=== PATIENT | female | born 1940 | race Caucasian/White ===

== ENCOUNTER → 2019-08-11 | Outpatient (CLI) | payer OTHER | LOC: SJCVC 15:14 | DX: I48.91 Unspecified atrial fibrillation (principal); K21.9 Gastro-esophageal reflux disease without esophagitis; Z79.899 Other long term (current) drug therapy; Z98.890 Other specified postprocedural states ==

== ENCOUNTER → 2019-09-15 | Outpatient (CLI) | payer OTHER ==
[~2019-09-15] MED LIST: COQ-10100 MG PO; MAGNESIUM250 M1 PO; PRILOSEC OTC20 MG PO; PROLIA60 MG/1 ML INJECTION; ZYRTEC10 M4 PO
== END ==
LOC: SJCVCIMAG 08:34
DX: I08.1 Rheumatic disorders of both mitral and tricuspid valves (principal); I48.0 Paroxysmal atrial fibrillation; R53.1 Weakness; Z88.5 Allergy status to narcotic agent; Z88.8 Allergy status to other drugs, medicaments and biological substances; Z79.899 Other long term (current) drug therapy

== ENCOUNTER → 2019-09-21 | Outpatient (CLI) | payer OTHER ==
[~2019-09-21] VITALS: Ht 170.2 cm; Wt 81.6 kg
[2019-09-21 09:35] LABS: HEMATOCRIT 40.8 % (37.0-47.0); HEMOGLOBIN 13.3 gm/dL (12.0-15.0); MCHC 32.7 g/dL (28.0-37.0); MCV 85.8 fL (80.0-100.0); RBC 4.75 mil/uL (4.20-5.00); RDW 12.5 % (10.5-14.5); WBC 5.7 thou/uL (4.0-11.0)
[2019-09-21 09:36] VITALS: BP 130/61
[2019-09-21 09:44] LABS: CALCIUM 9.8 mg/dL (8.5-10.1); POTASSIUM 4.5 mmol/L (3.5-5.1)
--- NOTE | 2019-09-22 08:16 | EKG ---
[facility] [place] [address] ELECTROCARDIOGRAM REPORT Name: ANASTASIA MARTINEZ Room #: REG [facility].#: [id number] Admission: 09/21/19 Attend Phys: Reynold Allen Discharge: Date of : 40 Report #: [id number] THIS REPORT FOR: cc: Kvng Poole Gregory DO Lundgren,John Perez MD [facility] ~ THIS REPORT FOR: //name// [facility] Test Date: 2019-09-21 Test Time: 10:03:02 Pat Name: ANASTASIA MARTINEZ Department: Room: Gender: F Dexigraph Operator: Allen GANDHI : 1940 Requested By: Reynold Allen Order Number: [id number] MD: John Waters Measurements Intervals [place] Rate: 70 P: 3 ND: 156 QRS: 16 QRSD: 96 T: 23 QT: 397 QTc: 429 Interpretive Statements Sinus rhythm Atrial premature complexes Early R-wave progression No previous ECG available for comparison Electronically Signed On 09-22-2019 8:15:15 BOAT MASTER by John Waters [email or web address] <ELECTRONICALLY SIGNED> By: John Waters MD, [facility] 09/22/19 0815 1003 100 John Waters MD, [facility] /EPI
--- NOTE | 2019-10-07 13:20 | CATHLAB ---
[facility] [place] [address] INVASIVE PROCEDURE REPORT Name: ANASTASIA MARTINEZ Room #: REG KYAW Bryon#: [id number] Admission: 09/21/19 Attend Phys: Reynold Allen Discharge: Date of : 40 Report #: [id number] THIS REPORT FOR: cc: Kvng Poole Gregory DO Lammoglia, Francisco J. MD ~ APPROVED REPORT Study performed: 09/21/2019 10:23:47 Patient Details Patient Status: Out-Patient Room #: The patient is a 79 year-old female Event Personnel Reynold Allen Message And Delivery Service Pricer, Shakira Lozada RN RN, Hugh Stern RTR Monitor, Nikki Fournier Monitor, Stephanie Manjarrez RTR Scrub Procedures Performed Art Access - R femoral artery* Left Heart Cath w/or w/o Coronaries [id number] [facility] [address]392 Initial Mod Sed Same Phys/QHP Gr [id number] 80441 Mod Sed Same Phys/QHP Ea [id number] Hemostasis with Manual pressure, supervision of conscious sedation Indication Positive stress test, Chest pain Procedure Narrative The patient was brought electively to the Cardiac Catheterization Laboratory and was prepped and draped in a sterile manner. The Right Groin^ was infiltrated with 1% Lidocaine subcutaneous anesthesia. A PINNACLE 4FR Sheath #[id number] sheath was inserted into the RFA^. Coronary angiography was performed using coronary diagnostic catheters. The right coronary system was accessed and visualized with a JR4 catheter. The left coronary system was accessed and visualized with a JL4 catheter. The left ventricle was accessed and visualized with a PIGTAIL catheter. Hemostasis was obtained with manual pressure following sheath removal without any complications. The patient tolerated the procedure well and there were no complications associated with the procedure. There was no hematoma. Intraoperative Conscious Sedation Sedation start time: 10:36 Case end Time: [facility] [address] [place] [address] INVASIVE PROCEDURE REPORT Name: ANASTASIA MARTINEZ Room #: REG GERRY Slater#: [id number] Admission: 09/21/19 Attend Phys: Reynold Aguirre Discharge: Date of : 40 Report #: [id number] 11:12 Versed 1.5 mg Fluoro Time: 1.57 minutes Dose: DAP 2276.60 cGycm2 322 mGy Contrast Type and Amount: Omnipaque 45 ml Coronary Angiography The patient's coronary anatomy is right dominant. Diagnostic Cath Left Main Normal origin moderate caliber long in length free of high-grade disease bifurcates left anterior descending left circumflex LAD Caliber type II vessel which courses along the anterior interventricular sulcus giving rise to septal and diagonal branches free of high-grade lesions Diagonal 1 Small-caliber vessel without high-grade lesions noted Circumflex Moderate caliber vessel which trifurcates early giving rise to several marginal branches and is free of high-grade lesions OM1 Small-caliber vessel less than structural lesions noted OM2 Mild to moderate caliber vessel without high-grade lesions OM3 Caliber vessel leading towards the lateral last the left ventricle free of high-grade disease with tortuous in its course Right Coronary Caliber vessel of normal origin without significant high-grade lesions notices it courses posterior to the crux of the heart rate is rise to a moderate caliber posterior descending artery all of which are free of high-grade disease R PDA Caliber vessel without significant stenosis Hemodynamics The aortic pressure is 121/61 mmHg with a mean of 86 mmHg. The left ventricular pressure is 148/5 mmHg with a mean of mmHg. The left ventricular end diastolic pressure is 25 mmHg. Conclusion 1. Essentially normal coronary arteries 2. Normal hemodynamics Recommendations [facility] [address] [place] [address] INVASIVE PROCEDURE REPORT Name: ANASTASIA MARTINEZ Room #: REG Bryon#: [id number] Admission: 09/21/19 Attend Phys: Reynold Aguirre Discharge: Date of : 40 Report #: [id number] Cardiac Risk Reduction Program Medical Therapy <ELECTRONICALLY SIGNED> By: Reynold Allen MD 10/07/19 1319 1319 1319 Reynold Allen MD /INF
--- NOTE | 2019-10-12 10:28 | H ---
[facility] [place] [address] HISTORY AND PHYSICAL Name: ANASTASIA MARTINEZ Room #: REG KYAW GoodmanJoanTanesha.#: [id number] Admission: 09/21/19 Attend Phys: Reynold Allen Discharge: Date of : 40 Report #: [id number] THIS REPORT FOR: cc: Kvng Poole,Kvng Connell,Reynold Wilson MD ~ CC: Reynold Poole DATE OF SERVICE: 09/21/2019 HISTORY OF PRESENT ILLNESS: A 79-year-old female patient with paroxysmal atrial fibrillation, atypical chest pain, had an abnormal noninvasive evaluation for ischemia. She now presents for cardiac catheterization. PHYSICAL EXAMINATION: HEENT: Normocephalic, atraumatic. Pupils are equal, round, reactive to light and accommodation. Extraocular muscles are intact. Sclerae and conjunctivae are anicteric. NECK: JVD is normal. Carotid upstrokes are bilaterally symmetrical. No bruits are heard. No thyromegaly. No lymphadenopathy. LUNGS: Clear to auscultation. No wheezes, rhonchi or crackles. No CVA tenderness. CARDIAC: Demonstrates a regular rhythm. Normal first and second heart sounds. No ventricular or atrial gallops, no rubs noted. No murmurs. No lifts or heaves, PMI normal. ABDOMEN: Soft, nontender, nondistended. Normal bowel sounds. EXTREMITIES: Without cyanosis, clubbing or edema. Distal pulses are intact. DTR symmetrical. NEUROLOGIC: Cranial nerves 2-12 are grossly normal and symmetrical. PSYCHIATRIC: Alert, oriented with normal affect. SKIN: Warm and dry. IMPRESSION: Chest discomfort with abnormal perfusion scan. We will proceed with cardiac catheterization. The risks, complications and alternatives have been discussed with the patient. She voices understanding and wished to proceed. <ELECTRONICALLY SIGNED> By: Reynold Allen MD 10/12/19 1028 0940 0947 Reynold Allen MD /nt
== END | disposition home or self-care (01) ==
LOC: CATH 08:45
PROVIDERS: Internal Medicine
DX: R07.9 Chest pain, unspecified (principal); I48.91 Unspecified atrial fibrillation; K21.9 Gastro-esophageal reflux disease without esophagitis; Z98.890 Other specified postprocedural states; Z79.899 Other long term (current) drug therapy; Z79.01 Long term (current) use of anticoagulants

== ENCOUNTER → 2019-10-12 | Outpatient (CLI) | payer OTHER | LOC: SJCVC 11:08 | DX: I48.0 Paroxysmal atrial fibrillation (principal); R06.09 Other forms of dyspnea; R00.1 Bradycardia, unspecified; Z79.899 Other long term (current) drug therapy ==

== ENCOUNTER 2019-10-25 09:17 | Inpatient (IN) | payer OTHER ==
[~2019-10-25] VITALS: Ht 170.2 cm; Wt 78.0 kg
[2019-10-25] VITALS (13 sets, daily range): BP systolic 126–150; BP diastolic 60–73
[2019-10-25 09:51] LABS: ABSOLUTE NEUTROPHILS 2.6 thou/uL (1.4-8.2); BASOPHILS 0.5 % (0.0-2.0); EOSINOPHILS 4.7 % (0.0-3.0); HEMATOCRIT 38.4 % (37.0-47.0); HEMOGLOBIN 12.6 gm/dL (12.0-15.0); MCH 28.3 pg (26.0-34.0); MCHC 32.7 g/dL (28.0-37.0); MCV 86.5 fL (80.0-100.0); MONOCYTES 11.3 % (1.0-8.0); PLATELET COUNT 230 thou/uL (150-400); POLYS 43.5 % (36.0-66.0); RBC 4.45 mil/uL (4.20-5.00); RDW 12.9 % (10.5-14.5); WBC 5.9 thou/uL (4.0-11.0)
[2019-10-25 10:09] LABS: CALCIUM 9.4 mg/dL (8.5-10.1); CREATININE 0.9 mg/dL (0.6-1.0); POTASSIUM 4.1 mmol/L (3.5-5.1)
[2019-10-25] MEDS ORDERED: FEOSOL45 M1 PO (10:26)
[2019-10-25] MEDS ORDERED: TURMERIC500 M2 PO (10:27)
[2019-10-25] MEDS ORDERED: GLUCOSAMINE S1000 M3 PO (10:29)
[2019-10-25] MEDS ORDERED: ONE-A-DAY PRO200 MCG PO (10:30)
[2019-10-25] MEDS ORDERED: CAL MAG ZINC +1 EACH PO (10:31)
[2019-10-25] MEDS ORDERED: VIT C-ROSE HIP500 MG PO (10:31)
[2019-10-25] MEDS ORDERED: POTASSIUM GLUCO99 M2 PO (10:33)
[2019-10-25] MEDS ORDERED: FISH OIL 1,001000 M3 PO (10:33)
[2019-10-25] MEDS ORDERED: PEDIA-LAX400 MG PO (10:34)
[2019-10-25] MEDS ORDERED: B COMPLEX WITH1 EAC1 PO (10:36)
[2019-10-25] MEDS ORDERED: OSTERA TABLET1 EAC1 PO ×2 (10:36→10:38)
--- NOTE | 2019-10-25 18:08 | NUR ---
PATIENT ARRIVED TO THE FLOOR AT 1345 FROM FRETTED INSTRUMENT INSPECTOR VIA BED. S/P PACEMAKER PLACEMENT LT UPPER CHEST. POST PROCEDURE VSS, AND LT UPPER CHEST INCISION, INATCT AND WELL APPROXIMATED. LT ARM IMMOBOLIZER INPLACE AND WILL CONTINUE TO MONITOR.
[2019-10-26 03:12] VITALS: BP 166/67
--- NOTE | 2019-10-26 04:18 | NUR ---
Pt. stated she slept fair during the night in between using bedpan. Kept on bedrest per order S/P pacemaker placement. Left arm immobilizer in place.Left chest pacemaker site with dressing CDI. SR per tele. Denies any pain or shortness of breath. SCD's in place. Bed alarm on for safety. Making progress towards care plan goals.9
[2019-10-26 08:16] VITALS: BP 42/63
[2019-10-26 11:14] VITALS: BP 143/55
[2019-10-26 12:54] VITALS: BP 143/55
[2019-10-26 14:23] VITALS: BP 143/55
--- NOTE | 2019-10-26 14:28 | NUR ---
Attempted to contact patient in room. Sp with RN. patient to dc home today. She is out of room having an xray. RN reports she is up ad crissy appears steady and reports no dc needs.
[2019-10-26 14:47] VITALS: BP 143/55
--- NOTE | 2019-10-26 15:54 | NUR ---
PT HAD PACEMAKER PLACED YESTERDAY...DISCHARGED HOME WITH SPOUSE TODAY...CHEST XRAY NEG...FOLLOW UP IN 1 WEEK AND 1 MONTH PER CARDIO...
--- NOTE | 2019-11-01 15:46 | CATHLAB ---
[facility] [address] [place] [address] INVASIVE PROCEDURE REPORT Name: ANASTASIA MARTINEZ Room #: 208-P [facility] IN M.R.#: [id number] Admission: 10/25/19 Attend Phys: Reynold Allen Discharge: 10/26/19 Date of : 40 Report #: [id number] THIS REPORT FOR: cc: Kvng Poole Gregory DO Lammoglia,Reynold Wilson MD ~ APPROVED REPORT Study performed: 10/25/2019 12:10:21 Patient Status: Out-Patient Room #: Event Personnel: Reynold Allen Financial Management Consultant, Maxim Greene RN, Racquel Mijares, Hugh Stern RTR Scrub, Robinson Richey, RDCS Scrub Exam: Generator Change for a Dual Chamber Permanent Pacemaker Indications: symptomatic bradycardia with AV block and syncope The patient is a 79 year-old female with a history of sick sinus syndrome with symptomatic bradycardia and episodes of tachycardia. Conscious Sedation Start time: 11:52 End Time: 13:12 Versed 2 mg 25 mg IV Demerol and divided aliquots Implanted Devices: Atrial Lead REF: [id number] SN: [id number] Ventricle Lead REF: [id number] SN: [id number] Generator REF: [id number] SN: [id number] Procedure The patient underwent informed consent. We discussed the details of the procedure including the risks, which include, but not limited to bleeding, infection, vascular damage, cardiac perforation, and pneumothorax. She understood these risks and was willing to proceed. As such, she was brought to the EP/Cardiac Catheterization laboratory in a fasting and sedated state and prepped and draped in a sterile fashion, received IV antibiotics prior to initiation of the procedure and a venogram was performed showing patency of the left axillary vein. The patient underwent conscious sedation, with no related complications. [address] [address] INVASIVE PROCEDURE REPORT Name: ANASTASIA MARTINEZ Room #: 208-P [facility] IN M.R.#: [id number] Admission: 10/25/19 Attend Phys: Reynodl Aguirre Discharge: 10/26/19 Date of : 40 Report #: [id number] The patient was brought to the EP/Cardiac Catheterization laboratory and the left chest and shoulder were prepped and draped in a sterile manner. During this case, Fluoroscopy and low osmolar contrast were used for imaging. The left subclavian region was infiltrated with 2% Lidocaine subcutaneous anesthesia. A transverse incision was made in the left upper chest cavity. The subcutaneous pocket was formed via blunt dissection. Percutaneous venous access was achieved and an introducer sheath was inserted into the left Subclavian vein. Sheaths were positions using the modified Seldinger technique Through the introducer sheaths the atrial and ventricular lead wires were positioned in the right atrial appendage and right ventricular apex respectively. Utilizing fluoroscopic guidance, the atrial and ventricular lead wires were advanced over the wires and positioned in the right atria and right ventricle respectively. Capturing and sensing thresholds were verified. Electrode Parameters A Lead Capture: 0.75 @ 0.4ms (Bi) Sense: >5.0mV (Bi) Lead Impedence: 480 ohms (Bi) V Lead Capture: 0.75V @ 0.4ms (Bi) Sense 9.3mV (Bi) Lead Impedence 750 ohms (Bi) Dual Chamber The atrial and ventricular leads were then secured using 2.0 ethibond sutures. The subcutaneous pocket was irrigated with vancomycin antibiotic solution.The atrial and ventricular leads were attached to the appropriate receptacles on the pulse generator and set screws firmly tightened to insure adequate contact and stability. The lead and pulse generator were placed into the subcutaneous pocket. Sharp and sponge counts were confirmed to be correct. At this time the pocket was closed subcutaneously with a 2O nonabsorbable suture in a running locking stitch and the skin was closed with a feel Vicryl in a subcuticular stitch. The operative site was dressed in sterile fashion with Steri-Strips 4 x 4 and OpSite and the patient was transferred to the floor in stable condition. Complications The patient tolerated the procedure well and there were no complications associated with the procedure. Findings [address] [address] INVASIVE PROCEDURE REPORT Name: ANASTASIA MARTINEZ Room #: 208-P [facility] IN M.R.#: [id number] Admission: 10/25/19 Attend Phys: Reynold Aguirre Discharge: 10/26/19 Date of : 40 Report #: [id number] Specimens Removed: N/A Estimated Blood Loss: 5 mL Conclusion 1. Successful implantation of a dual-chamber pacemaker with active fixation leads Recommendations 1. Routine post pacemaker implantation protocol <ELECTRONICALLY SIGNED> By: Reynold Allen MD 11/01/19 1544 1544 1544 Reynold Allen MD /INF
--- NOTE | 2019-11-05 01:12 | D ---
[facility] [place] [address] DISCHARGE SUMMARY Name: ANASTASIA MARTINEZ Room #: 208-P [facility] IN M.R.#: [id number] Admission: 10/25/19 Attend Phys: Reynold Allen Discharge: 10/26/19 Date of : 40 Report #: [id number] THIS REPORT FOR: cc: Kvng Poole,Kvng Connell,Reynold Wilson MD ~ THIS REPORT FOR: //name// CC: Reynold Poole DATE OF SERVICE: 10/26/2019 ADMITTING DIAGNOSES: Syncope, near syncope with symptomatic AV block and sick sinus syndrome. DISCHARGE DIAGNOSES: Syncope, near syncope with symptomatic AV block and sick sinus syndrome. PROCEDURES PERFORMED: 1. Insertion of a dual chamber pacemaker. 2. Supervision of conscious sedation. FOLLOWUP: 1. Dr. Allen for wound check with nurse in [address] Allen's office visit in 4 weeks. BRIEF CLINICAL HISTORY: See history and physical chart. HOSPITAL COURSE: The patient was admitted to the hospital and underwent uncomplicated dual chamber pacemaker insertion. She remained hemodynamically and electrically stable throughout her course. No symptoms except for some incisional discomfort were described by the patient. Chest x-ray was obtained and upon results if no pneumothorax is noted, she will be discharged in stable and improved condition to follow up with the previously stated discharge instructions and medications. DISCHARGE MEDICATIONS: Home meds. <ELECTRONICALLY SIGNED> By: Reynold Allen MD 11/05/19 0112 1250 1256 Reynold Allen MD /nt
== END 2019-10-26 15:27 | disposition home or self-care (01) | DRG 244 ==
LOC: CATH 09:17 → 2N 14:28 → ENTRNSPT 10-26 15:07 → 2N 10-26 15:27
PROVIDERS: ADMIT Internal Medicine
PROC: 02HK3JZ Insertion of Pacemaker Lead into Right Ventricle, Percutaneous Approach (ICD-10-PCS; principal; 2019-10-26)
PROC: B51V1ZZ Fluoroscopy of Other Veins using Low Osmolar Contrast (ICD-10-PCS; principal; 2019-10-26)
PROC: 0JH606Z Insertion of Pacemaker, Dual Chamber into Chest Subcutaneous Tissue and Fascia, Open Approach (ICD-10-PCS; principal; 2019-10-26)
PROC: 02H63JZ Insertion of Pacemaker Lead into Right Atrium, Percutaneous Approach (ICD-10-PCS; principal; 2019-10-26)
DX: I49.5 Sick sinus syndrome (principal); I44.30 Unspecified atrioventricular block; I48.0 Paroxysmal atrial fibrillation; Z79.899 Other long term (current) drug therapy
CPT/HCPCS: 10081

== ENCOUNTER → 2019-12-06 | Outpatient (CLI) | payer OTHER ==
[~2019-12-06] MED LIST changes: +B COMPLEX WITH1 EAC1 PO; +CAL MAG ZINC +1 EACH PO; +FEOSOL45 M1 PO; +FISH OIL 1,001000 M3 PO; +GLUCOSAMINE S1000 M3 PO; +ONE-A-DAY PRO200 MCG PO; +OSTERA TABLET1 EAC1 PO; +PEDIA-LAX400 MG PO; +POTASSIUM GLUCO99 M2 PO; +TURMERIC500 M2 PO; +VIT C-ROSE HIP500 MG PO
== END ==
LOC: SJCVC 12:59
PROVIDERS: ATTEND Internal Medicine
DX: Z45.018 Encounter for adjustment and management of other part of cardiac pacemaker (principal); R53.1 Weakness; I48.0 Paroxysmal atrial fibrillation; Z79.899 Other long term (current) drug therapy

== ENCOUNTER → 2020-12-11 | Outpatient (CLI) | payer OTHER | LOC: SJCVC 13:27 | PROVIDERS: ATTEND Internal Medicine | DX: I49.9 Cardiac arrhythmia, unspecified (principal); I82.403 Acute embolism and thrombosis of unspecified deep veins of lower extremity, bilateral; I49.5 Sick sinus syndrome; I10 Essential (primary) hypertension; E78.5 Hyperlipidemia, unspecified; Z95.0 Presence of cardiac pacemaker; Z88.1 Allergy status to other antibiotic agents; Z88.5 Allergy status to narcotic agent; Z79.899 Other long term (current) drug therapy ==

== ENCOUNTER → 2021-06-17 | Outpatient (CLI) | payer OTHER | LOC: SJCVC 12:45 | PROVIDERS: ATTEND Internal Medicine | DX: I82.503 Chronic embolism and thrombosis of unspecified deep veins of lower extremity, bilateral (principal); I49.5 Sick sinus syndrome; E78.5 Hyperlipidemia, unspecified; Z88.1 Allergy status to other antibiotic agents; Z88.5 Allergy status to narcotic agent; Z88.8 Allergy status to other drugs, medicaments and biological substances; Z79.899 Other long term (current) drug therapy; Z95.818 Presence of other cardiac implants and grafts; Z95.0 Presence of cardiac pacemaker ==

== ENCOUNTER → 2021-06-28 | Outpatient (CLI) | payer OTHER | LOC: SJCVCIMAG 07:11 | PROVIDERS: ATTEND Internal Medicine | DX: M79.89 Other specified soft tissue disorders (principal); M79.605 Pain in left leg; M79.604 Pain in right leg; I48.91 Unspecified atrial fibrillation; Z79.899 Other long term (current) drug therapy; Z88.1 Allergy status to other antibiotic agents; Z88.5 Allergy status to narcotic agent; Z88.8 Allergy status to other drugs, medicaments and biological substances; Z95.818 Presence of other cardiac implants and grafts; Z95.0 Presence of cardiac pacemaker ==